=== PATIENT | female | born 1980 | race Caucasian/White ===

== ENCOUNTER 2018-01-13 10:32 | Day surgery (SDC) | payer BC ==
[2018-01-13] MEDS ORDERED: LR 1,000 ML IV ONE (10:45)
[2018-01-13] MEDS ORDERED: LIDOCAINE 0.5% 50 ML SDV ONE (11:38)
--- NOTE | 2018-01-13 11:41 | PDANEPAE ---
ANE History of Present Illness 37 y/o female, 33 weeks , with finger tendon injury from pumpkin carving accident. She is here for finger tendon repair under a oswaldo block. Dr. Kirk's recommendation: preop and postop monitoring is sufficient because the patient is not receiving general anesthesia. ANE Past Medical History - Cardiovascular History Hx Hypertension: No Hx Arrhythmias: No Hx Chest Pain: No Hx Coronary Artery / Peripheral Vascular Disease: No Hx CHF / Valvular Disease: No Hx Palpitations: No - Pulmonary History Hx COPD: No Hx Asthma/Reactive Airway Disease: No Hx Recent Upper Respiratory Infection: No Hx Oxygen in Use at Home: No Hx Sleep Apnea: No Sleep Apnea Screening Result - Last Documented: Negative - Neurologic History Hx Cerebrovascular Accident: No Hx Seizures: No Hx Dementia: No - Endocrine History Hx Diabetes: No - Renal History Hx Renal Disorders: No Renal History Comment: frequency with - Liver History Hx Hepatic Disorders: No - Neurological & Psychiatric Hx Hx Neurological and Psychiatric Disorders: No - Cancer History Hx Cancer: No - Congenital Disorder History Hx Congenital Disorders: No - GI History Hx Gastrointestinal Disorders: No - Other Health History Other Health History: eczema- controlled currently. cut fingers while carving pumpkins - Chronic Pain History Chronic Pain: No - Surgical History Prior Surgeries: emergency 11/20/12. wisdom teeth. tonsillectomy. eye surgery- RPK ANE Review of Systems Review of Systems: - Exercise capacity METS (RN): 4 METS ANE Patient History - Allergies Allergies/Adverse Reactions: oxycodone HCl [From Percocet] Allergy (Verified 01/12/18 11:48) Vomiting - Home Medications Home Medications: Vit27&Calcium/Iron/FA [ Rx 1 Tablet (RX)] DAILY 11/21/12 [Last Taken 01/11/18] CEPHALEXIN 01/12/18 [Last Taken 1 Day Ago ~01/12/18] - NPO status NPO Since - Liquids (Date): 01/13/18 NPO Since - Liquids (Time): 09:00 NPO Since - Solids (Date): 01/13/18 NPO Since - Solids (Time): 02:00 - Smoking Hx Smoking Status: Former smoker - Family Anes Hx Family Hx Anesthesia Complications: none ANE Labs/Vital Signs - Vital Signs Height: 172.72 cm Weight: 85.275 kg ANE Physical Exam - Airway Mallampati Score: Class 1 Mouth exam: normal dental/mouth exam - Pulmonary Pulmonary: no respiratory distress, clear to auscultation - Cardiovascular Cardiovascular: regular rate and rhythym - ASA Status ASA Status: II ANE Anesthesia Plan Anesthesia Plan: MAC (Anesthesia Plan: Oswaldo Block)
--- NOTE | 2018-01-13 12:03 | PDGENHP ---
History and Physical - Chief Complaint right hand lacerations - History of Present Illness Health 37 year old female who lacerated small and ring finger flexor tendons cutting a pumpkin. Presents for small and ring finger flexor tendon repair. History Information - Allergies/Home Medication List Allergies/Adverse Reactions: oxycodone HCl [From Percocet] Allergy (Verified 01/12/18 11:48) Vomiting Home Medications: Vit27&Calcium/Iron/FA [ Rx 1 Tablet (RX)] DAILY 11/21/12 [Last Taken 01/11/18] CEPHALEXIN 01/12/18 [Last Taken 1 Day Ago ~01/12/18] I have personally reviewed and updated: family history, medical history, social history, surgical history - Past Medical History no pertinent PMH Additional medical history: 33 weeks - Social History Smoking Status: Never smoked Alcohol Use: None Drug Use: None Review of Systems Review of Systems: ROS: 10pt was reviewed & negative except for what was stated in HPI & below ( right hand laceration, ) Physical Exam Physical Exam: Constitutional: no apparent distress Eyes: PERRL Cardiovascular: regular rate and rhythym Respiratory: no respiratory distress Skin: other (lacerations right hand) Musculoskeletal: other (absence of flexor tendon function right hand small and ring finger) Neurologic: AAOx3 Assessment & Plan Assessment: Right hand small and ring flexor tendon lacerations. Plan: Flexor tendon repair right small and ring fingers.
[2018-01-13] MEDS ORDERED: LIDOCAINE 1% 300 MG/30 ML SDV ONE (12:18)
[2018-01-13] MEDS ORDERED: fentaNYL 100 MCG/2 ML INJ ONE (13:03)
[2018-01-13] MEDS ORDERED: LR 500 ML IV PRN (14:19)
[2018-01-13] MEDS ORDERED: ACETAMINOPHEN 500 MG TAB PO PRN (14:19)
--- NOTE | 2018-01-13 14:19 | POSTANESTH ---
Post Anesthetic Evaluation Cardiovascular Status: Normal, Stable Respiratory Status: Normal, Stable Level of Consciousness/Mental Status: Can Participate in Eval Pain Control: Adequate, Prn Tx Ordered Nausea/Vomiting Control: Adequate, Prn Tx Ordered Complications Possibly Related to Anesthesia: None Noted
--- NOTE | 2018-01-13 14:34 | POSTOPPROG ---
Post Op Note Date of Operation: 01/13/18 Surgeon: Filiberto Zhou Clinical Data Programmer: Steve Conley PA-C Anesthesia: Local (Specify), Other (Specify) ([place] block) Pre-op Diagnosis: right small and ring flexor tendon laceration Post-op Diagnosis: same Procedure: right small and ring flexor tendon repairs Findings: See operative note. Inf/Abcess present in the surg proc area at time of surgery?: No EBL: Minimal Complications: none
[2018-01-13 15:14] VITALS: BP 112/82
--- NOTE | 2018-01-14 09:14 | GOP ---
DATE OF OPERATION: 01/13/2018 SURGEON: Filiberto Zhou MD ANESTHESIOLOGY TECHNOLOGIST: Steve Conley PA-C ANESTHESIA: [place] block. PREOPERATIVE DIAGNOSIS: Right hand flexor digitorum profundus and flexor digitorum superficialis lac erations on ring and small finger. POSTOPERATIVE DIAGNOSIS: Right hand flexor digitorum profundus and flexor digitorum superficialis la cerations on ring and small finger. PROCEDURE PERFORMED: Repair of flexor digitorum superficialis and flexor digitorum profundus of both right ring and long finger, zone 2. FINDINGS: SPECIMENS: None. ESTIMATED BLOOD LOSS: At finish of procedure: 0. INDICATIONS: The patient is a 37-year-old female who cut her small and ring finger flexor tendons wh ile carving pumpkins. To complicate matters, she is 33 weeks . Because of the inherent nece ssity for timeliness of repair, we need to repair these tendons in order to get any kind of good outc ome despite the fact that she is 33 weeks . We are planning on a [place] block so as to avoid ge neral anesthesia and we have consulted the patient's CORPORATE EVENT PLANNER which is why we are doing the case in the [facility] so they are available should there be any complications or monitoring necessary. I have discussed with the patient the risks, benefits and alternatives of the procedure i ncluding the routine risks of flexor tendon repair which include infection, neurovascular injury, ten don scarring, tendon failure with the possible necessity of future operations and permanent dysfuncti on of the fingers, this in addition to the possibility of complications related to . She un derstands and wishes to proceed and proper informed consent was obtained and placed on the chart. DESCRIPTION OF PROCEDURE: The patient was taken to the operating room after being properly identifie d in the preoperative area and the operative extremity marked. She was laid supine on the operating table. The time-out was performed and she received IV Ancef antibiotics. A [place] block was initiated by Dr. De La Cruz in the Anesthesia Team and then the right upper extremity prepped and draped in a sterile fashion. We addressed first the ring finger. There was a small laceration around the PIP crease. T his was extended proximally and distally so that the tendon ends could be identified. A portion of t he A4 sonja was released distally because this was really the level of the tendon laceration. The p atient had good superficialis and profundus. We maintained the rest of the sonja system. I used a minimal touch technique by skewering the tendon with a 25 gauge needle, then performed a repair using 4-0 loop Supramid suture for an 8-strand repair in cruciate-type fashion internalizing the knots wit h a running epitendinous 6-0 Prolene locking stitch. I was quite satisfied with the profundus repair . I repaired the superficialis using [place]-type stitches and 4-0 Ethibond suture and there was goo d christianity of tension and no bow-stringing of the tendon. Attention was then turned to the small finger. This was at an identical level and the identical repa ir was performed at the same level using the Ethibond 4-0 Supramid loop suture and the 6-0 Prolene ru nning epitendinous locking suture. I was pleased with the repairs. Irrigation was carried out. We placed local anesthetic directly at the incision sites using 1% lidocaine without epinephrine and the n the tourniquet was let down so we could close the incisions, would give the patient some relief fro m the tourniquet pressure and avoid any significant sedation. We closed the wounds using 4-0 Prolene suture. A bulky soft dressing with a dorsal blocking splint was placed and the patient was taken to recovery having tolerated the procedure well without any apparent complications. All sponge and nee dle counts were correct at the finish of the operation. PLAN: The patient is going to be discharged home so long as everything is going okay and she will monson ve appropriate follow up with her CORPORATE EVENT PLANNER. She will see our hand therapist early next week. This has already been arranged and at this time she will have a dorsal blocking splint made and begin passive motion only. /[id number]/MODL
== END 2018-01-13 15:00 | disposition home or self-care (01) ==
LOC: FSGY 10:32
PROVIDERS: ATTEND Orthopaedic Surgery Hand Surgery
PROC: 0LQ70ZZ Repair Right Hand Tendon, Open Approach (ICD-10-PCS; principal; 2018-01-13 12:00)
DX: S66.126A Laceration of flexor muscle, fascia and tendon of right little finger at wrist and hand level, initial encounter (principal); S66.124A Laceration of flexor muscle, fascia and tendon of right ring finger at wrist and hand level, initial encounter
CPT/HCPCS: J3010

== ENCOUNTER 2018-02-28 08:14 | Inpatient (IN) | payer BC ==
[2018-02-28] MEDS ORDERED: ceFAZolin 2 GM/DEXTROSE 100 ML IV ONE (08:50)
[2018-02-28] MEDS ORDERED: CITRIC ACID/SODIUM CITRATE 30 ML UDCUP PO ONE (08:50)
[2018-02-28] MEDS ORDERED: LR 500 ML IV ONE (08:50)
[2018-02-28] MEDS ORDERED: LR 1,000 ML IV SCH (09:00)
[2018-02-28 09:20] LABS: PLATELET COUNT 169 10^3/uL (150-400)
[2018-02-28] MEDS ORDERED: TERBUTALINE SULFATE 1 MG/ML VIAL ONE (10:21)
[2018-02-28] MEDS ORDERED: AMMONIA AROMATIC 1 EACH AMP IH ONE ×2 (10:21→10:25)
[2018-02-28] MEDS ORDERED: MISOPROSTOL 200 MCG TAB ONE (10:22)
[2018-02-28] MEDS ORDERED: OXYTOCIN 10 UNIT/ML VIAL ONE (10:25)
[2018-02-28] MEDS ORDERED: morphINE PF 10 MG/10 ML INJ ONE (10:32)
--- NOTE | 2018-02-28 11:01 | PDANEPAE ---
ANE History of Present Illness Repeat ANE Past Medical History - Cardiovascular History Hx Hypertension: No Hx Arrhythmias: No Hx Chest Pain: No Hx Coronary Artery / Peripheral Vascular Disease: No Hx CHF / Valvular Disease: No Hx Palpitations: No - Pulmonary History Hx COPD: No Hx Asthma/Reactive Airway Disease: No Hx Recent Upper Respiratory Infection: No Hx Oxygen in Use at Home: No Hx Sleep Apnea: No Sleep Apnea Screening Result - Last Documented: Negative - Neurologic History Hx Cerebrovascular Accident: No Hx Seizures: No Hx Dementia: No - Endocrine History Hx Diabetes: No - Renal History Hx Renal Disorders: No Renal History Comment: frequency with - Liver History Hx Hepatic Disorders: No - Neurological & Psychiatric Hx Hx Neurological and Psychiatric Disorders: No - Cancer History Hx Cancer: No - Congenital Disorder History Hx Congenital Disorders: No - GI History Hx Gastrointestinal Disorders: No - Other Health History Other Health History: eczema- controlled currently. cut fingers while carving pumpkins - Chronic Pain History Chronic Pain: No - Surgical History Prior Surgeries: emergency 11/20/12. wisdom teeth. tonsillectomy. eye surgery- RPK ANE Review of Systems Review of Systems: ANE Patient History - Allergies Allergies/Adverse Reactions: oxycodone HCl [From Percocet] Allergy (Verified 01/12/18 11:48) Vomiting - Home Medications Home medications: home medication list seen and reviewed Home Medications: Vit27&Calcium/Iron/FA [ Rx 1 Tablet (RX)] 1 tab PO DAILY [Last Taken 01/11/18] - NPO status NPO Status: no food or drink >8 hours NPO Since - Liquids (Date): 02/28/18 NPO Since - Liquids (Time): 06:45 NPO Since - Solids (Date): 02/28/18 NPO Since - Solids (Time): 01:36 - Anes Hx Anes Hx: no prior problems (Prior epidural and GA without diff) - Smoking Hx Smoking Status: Never smoked - Family Anes Hx Family Hx Anesthesia Complications: none ANE Labs/Vital Signs - Labs Result Diagrams: 02/28/18 08:15 - Vital Signs Blood Pressure: 122/81 Heart Rate: 86 Respiratory Rate: 19 O2 Sat (%): 96 Height: 172.72 cm Weight: 91.626 kg ANE Physical Exam - Airway Neck exam: FROM Mallampati Score: Class 2 Mouth exam: normal dental/mouth exam - Pulmonary Pulmonary: no respiratory distress - Cardiovascular Cardiovascular: regular rate and rhythym - ASA Status ASA Status: II ANE Anesthesia Plan Anesthesia Plan: spinal (With duramorph)
[2018-02-28] MEDS ORDERED: PHENYLEPHRINE HCL 100 MCG/ML SYR ONE (11:35)
[2018-02-28] MEDS ORDERED: OXYTOCIN 100 UNITS/10 ML VIAL ONE (11:43)
[2018-02-28] MEDS ORDERED: fentaNYL 100 MCG/2 ML INJ IVP PRN (11:55)
[2018-02-28] MEDS ORDERED: ONDANSETRON 4 MG/2 ML VIAL IVP PRN (11:55)
[2018-02-28] MEDS ORDERED: ONDANSETRON 4 MG/2 ML VIAL ONE (12:27)
--- NOTE | 2018-02-28 13:03 | POSTANESTH ---
Post Anesthetic Evaluation Cardiovascular Status: Similar to Pre-Op Cond Respiratory Status: Similar to Pre-op Cond. Level of Consciousness/Mental Status: Can Participate in Eval, Alert and Oriented Pain Control: Adequate, Prn Tx Ordered Nausea/Vomiting Control: Adequate, Prn Tx Ordered Complications Possibly Related to Anesthesia: None Noted
[2018-02-28] MEDS ORDERED: oxyCODONE IR 5 MG TAB PO PRN (13:11)
[2018-02-28] MEDS ORDERED: BISACODYL 10 MG SUPP PR PRN (13:14)
[2018-02-28] MEDS ORDERED: LACTULOSE 20 GM/30 ML UDCUP PO PRN (13:14)
[2018-02-28] MEDS ORDERED: MAGNESIUM HYDROXIDE 30 ML UDCUP PO PRN (13:14)
[2018-02-28] MEDS ORDERED: POLYETHYLENE GLYCOL 3350 17 GM PKT PO PRN (13:14)
--- NOTE | 2018-02-28 13:21 | OBDEL ---
Info Type: Repeat Presentation at Delivery: Vertex L&D Analgesia/Anesthesia Type: Spinal GBS+: No Intrapartum Medications: Generic Name Dose Route Start Last Admin Trade Name Freq PRN Reason Stop Dose Admin Lactated Ringer's 1,000 mls @ 125 mls/hr 02/28/18 09:00 02/28/18 09:32 Lr IV 03/01/18 08:59 1,000 mls CONT NEL Administration Discontinued Medications Generic Name Dose Route Start Last Admin Trade Name Freq PRN Reason Stop Dose Admin Citric Acid/Sodium Citrate 30 ml 02/28/18 08:50 02/28/18 09:32 Bicitra PO 02/28/18 08:51 30 ml ONCALL ONE Administration Cefazolin Sodium/Dextrose 100 mls @ 200 mls/hr 02/28/18 08:50 02/28/18 11:03 Ancef IV 02/28/18 09:19 100 mls ONCALL ONE Administration Protocol Lactated Ringer's 500 mls @ 0 mls/hr 02/28/18 08:50 02/28/18 10:34 Lr IV 02/28/18 08:51 Not Given ONCE ONE As Directed - Care Provider Anchorman/PICKLING OPERATOR: Mayra Foster Operative Report - Delivery Pre-op Diagnoses: IUP at 40 wks, PCS declines MP, undesired fertility Post-op Diagnoses: same History of Prior Section: Yes Number of Prior Sections: 1 Nulliparous Prior to Delivery: No Indications for Prior Section: Arrest of Descent Indications for Current Section: Elective/Repeat Procedure: Scheduled, Low Transverse, Other (Specify) (bilateral salpingectomies ) Surgeon: Lisa Rosales Baccarat Manager: Cristina Hawthorne Anesthesiologist: Phil Henriquez Findings: normal uterus, tubes, ovaries. Little scar tissue. clear fluid. normal UOP and clear at end of case. prominent sacral promontory and narrow interior iliac crests. baby robust immed after delivery. 1 min delayed cord clamp. normal removal of placenta. good tone of uterus quickly. tubes removed easily with ligasure electrocautery. head del through hysterotomy with mitivac - gentle pull Specimen(s)/Path: Fallopian Tube(s) IV Fluid (ml): 2,600 EBL: 800 Data MARISA: 12/18/18 Gestational Age: 40 week(s) and 0 day(s) [place] Delivery Date: 02/28/18 Delivery Time: 11:45 Sex of : Female [place] Weight (gm): 3574 g Score (1 Min): 8 Score (5 Min): 9 ICD10 Worksheet Patient Problems: Problems Problem Status Onset Status post bilateral salpingectomy Acute S/P repeat low transverse Acute
[2018-02-28] MEDS: ACETAMINOPHEN 325 MG TAB PO SCH ×2 (14:03→19:30)
[2018-02-28] MEDS: KETOROLAC 30 MG/1 ML SDV IVP SCH ×2 (15:18→21:10)
--- NOTE | 2018-02-28 18:40 | OBPP ---
Progress Note Assessment/Plan: Assessment: POD 1/2 s/p RCS, BS hx of PPD and anxiety - no meds Plan: routine care, anemia on admit will start iron 02/28/18 18:36 02/28/18 18:39 Subjective/ Course: 02/28/18 18:38 Pt doing well. Baby has been latched for a lot of today - pt ok with that. Minimal pain with toradol/ duramorph. bld is light. No nausea - lissy liquids. Cannon draining clear UOP Objective: 02/28/18 08:15 Patient ABO/Rh A POSITIVE 02/28/18 08:15 Temp Pulse Resp BP Pulse Ox 36.1 C 83 18 110/74 100 02/28/18 17:30 02/28/18 17:30 02/28/18 17:30 02/28/18 17:30 02/28/18 17:30 Uterine Position/Fundal Height: Umbilicus -1 Uterine Tone: Firm Physical Exam - Physical Exam Abdomen: non-tender (approp post op tenderness), soft, dressing (CDI) Extremities: non-tender, pedal edema (minimal) Skin: normal color, warm/dry Neuro/Psych: alert, normal mood/affect
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
[2018-02-28] MEDS: SENNOSIDES/DOCUSATE SODIUM TAB PO SCH (21:12)
[2018-03-01] MEDS: ACETAMINOPHEN 325 MG TAB PO SCH ×4 (01:15→22:25)
[2018-03-01] MEDS: KETOROLAC 30 MG/1 ML SDV IVP SCH ×2 (03:15→19:15)
[2018-03-01] MEDS ORDERED: KETOROLAC 30 MG/1 ML SDV IVP ONE (10:15)
[2018-03-01] MEDS: SENNOSIDES/DOCUSATE SODIUM TAB PO SCH ×2 (10:16→22:25)
[2018-03-01] MEDS: FERRO-SEQUELS 65 MG TAB.ER PO SCH (10:17)
--- NOTE | 2018-03-01 10:18 | OBPP ---
Progress Note Assessment/Plan: Assessment:[age] G2Pnow 2 POD#1 s/p R-C/S, doing well, anemic Plan:Encoourage ambulation, dc urinary catheter and transition to po pain medications. Edwina Moctezuma MD, FACOG, [facility] 03/01/18 10:37 Subjective/ Course: 02/28/18 18:38 Pt doing well. Baby has been latched for a lot of today - pt ok with that. Minimal pain with toradol/ duramorph. bld is light. No nausea - lissy liquids. Cannon draining clear UOP 03/01/18 10:38 Doing well, has been up out of bed once. going well. Pain well controlled with toradol and duramorph so far. Min bleeding. Has lissy reg diet. no nausea or dizziness. Objective: 03/01/18 06:10 Patient ABO/Rh A POSITIVE 02/28/18 08:15 Temp Pulse Resp BP Pulse Ox 36.7 C 80 20 120/72 98 03/01/18 03:30 03/01/18 05:30 03/01/18 05:30 03/01/18 03:30 03/01/18 05:30 gen - pleasant, NAD, her baby CV - RRR chest - CTAB abd - soft, + BS, dressing - c/d/i, fundus firm at u-2 ext - SCDs in place, no calf tenderness, trace edema Uterine Position/Fundal Height: Umbilicus -2 Uterine Tone: Firm
[2018-03-01] MEDS ORDERED: HYDROCODONE/APAP 5/325 TAB PO PRN (10:41)
[2018-03-01] MEDS: IBUPROFEN 600 MG TAB PO SCH ×2 (16:33→22:25)
[2018-03-02] MEDS: IBUPROFEN 600 MG TAB PO SCH ×4 (04:46→19:30)
[2018-03-02] MEDS: ACETAMINOPHEN 325 MG TAB PO SCH ×4 (04:46→19:30)
--- NOTE | 2018-03-02 11:00 | OBPP ---
Progress Note Assessment/Plan: Assessment: 1) s/p RCS POD # 2 - pt is stable 2) Anemia - pt is asymptomatic Plan: Continue routine post-op care Encourage ambulation Thinking about going home today if baby girl is discharged Instructions reviewed with pt Rx given for [place] and Motrin Cont PNV, iron and colace Pelvic rest RTC in 2 weeks for incision check 03/02/18 10:57 Subjective/ Course: 02/28/18 18:38 Pt doing well. Baby has been latched for a lot of today - pt ok with that. Minimal pain with toradol/ duramorph. bld is light. No nausea - lissy liquids. Cannon draining clear UOP 03/01/18 10:38 Doing well, has been up out of bed once. going well. Pain well controlled with toradol and duramorph so far. Min bleeding. Has lissy reg diet. no nausea or dizziness. 03/02/18 10:59 Pt seen and examined. Pain is controlled, only taking Motrin and Tylenol. Feels as if she has to have a BM. Pt is OOB, lissy regular diet, voiding and passing flatus. Denies any f/c/n/v/CP or SOB. BF is going well. Thinking about going home today if bay girl is discharged. Objective: 03/01/18 06:10 Patient ABO/Rh A POSITIVE 02/28/18 08:15 Temp Pulse Resp BP Pulse Ox 36.5 C 88 16 114/75 97 03/02/18 08:00 03/02/18 08:00 03/02/18 08:00 03/02/18 08:00 03/02/18 08:00 Uterine Position/Fundal Height: Umbilicus -2 Uterine Tone: Firm Physical Exam - Physical Exam General Appearance: WD/WN, alert, no apparent distress Respiratory: lungs clear, normal breath sounds Cardiac/Chest: regular rate, rhythm Abdomen: normal bowel sounds, non-tender, soft, flatus (+), incision (C/D/I, with steri strips in place) Extremities: non-tender, normal inspection Skin: normal color, warm/dry Neuro/Psych: alert, normal mood/affect, oriented x 3
--- NOTE | 2018-03-02 11:01 | OBGCSDC ---
General Delivery Information - General Info : 2 Para: 2 Abortions: 0 Type: Repeat L&D Analgesia/Anesthesia Type: Spinal Admission Date: 02/28/18 Labs: Patient ABO/Rh A POSITIVE 02/28/18 08:15 Hct 27.9 % (38.0-47.0) L 03/01/18 06:10 - Hospital Course : 02/28/18 18:38 Pt doing well. Baby has been latched for a lot of today - pt ok with that. Minimal pain with toradol/ duramorph. bld is light. No nausea - lissy liquids. Cannon draining clear UOP 03/01/18 10:38 Doing well, has been up out of bed once. going well. Pain well controlled with toradol and duramorph so far. Min bleeding. Has lissy reg diet. no nausea or dizziness. 03/02/18 10:59 Pt seen and examined. Pain is controlled, only taking Motrin and Tylenol. Feels as if she has to have a BM. Pt is OOB, lissy regular diet, voiding and passing flatus. Denies any f/c/n/v/CP or SOB. BF is going well. Thinking about going home today if bay girl is discharged. - Delivery Providers Surgeon: Lisa Rosales Administrative Law Judge: Cristina Hawthorne Anesthesiologist: Phil Henriquez - Delivery Number of Prior Sections: 1 Indications for Current Section: Elective/Repeat Surgical Procedures: Scheduled, Low Transverse, Other (Specify) (bilateral salpingectomies) EBL: 800 [place] Data MARISA: 02/28/18 Gestational Age: 40 week(s) and 2 day(s) [place] Delivery Date: 02/28/18 Delivery Time: 11:45 Sex of Infant: Female [place] Weight (gm): 3574 g Score (1 Min): 8 Score (5 Min): 9 Discharge Information - Discharge Information Condition: Good Instruction/Follow Up: Two Weeks (incision check), Four Weeks (mood check), Six Weeks ( check)
[2018-03-02] MEDS: FERRO-SEQUELS 65 MG TAB.ER PO SCH (12:08)
[2018-03-02] MEDS: SENNOSIDES/DOCUSATE SODIUM TAB PO SCH ×2 (12:08→21:00)
[2018-03-03] MEDS: ACETAMINOPHEN 325 MG TAB PO SCH ×2 (05:57)
[2018-03-03] MEDS: IBUPROFEN 600 MG TAB PO SCH ×3 (05:57→11:46)
[2018-03-03 08:17] VITALS: BP 124/79
--- NOTE | 2018-03-03 10:23 | OBPP ---
Progress Note Assessment/Plan: Assessment: Plan: Subjective/ Course: 02/28/18 18:38 Pt doing well. Baby has been latched for a lot of today - pt ok with that. Minimal pain with toradol/ duramorph. bld is light. No nausea - lissy liquids. Cannon draining clear UOP 03/01/18 10:38 Doing well, has been up out of bed once. going well. Pain well controlled with toradol and duramorph so far. Min bleeding. Has lissy reg diet. no nausea or dizziness. 03/02/18 10:59 Pt seen and examined. Pain is controlled, only taking Motrin and Tylenol. Feels as if she has to have a BM. Pt is OOB, lissy regular diet, voiding and passing flatus. Denies any f/c/n/v/CP or SOB. BF is going well. Thinking about going home today if bay girl is discharged. Objective: 03/01/18 06:10 Patient ABO/Rh A POSITIVE 02/28/18 08:15 Temp Pulse Resp BP Pulse Ox 36.1 C 86 16 124/79 H 98 03/03/18 08:17 03/03/18 08:17 03/03/18 08:17 03/03/18 08:17 03/03/18 08:17
== END 2018-03-03 13:00 | disposition home or self-care (01) | DRG 785 ==
LOC: FLD 08:14 → FOB 15:40
PROVIDERS: ADMIT Obstetrics & Gynecology; ATTEND Obstetrics & Gynecology
DX: O34.219 Maternal care for unspecified type scar from previous cesarean delivery (principal); Z30.2 Encounter for sterilization; Z3A.40 40 weeks gestation of pregnancy; Z37.0 Single live birth
CPT/HCPCS: J0690; J1885; J2274; J2370; J2405; J2590; J3105